=== PATIENT | male | born 1990 | race Caucasian/White ===

== ENCOUNTER 2017-01-05 12:43 | Emergency (ER) | payer OTHER ==
[~2017-01-05] VITALS: Ht 185.4 cm; Wt 72.6 kg
[2017-01-05] MEDS ORDERED: PROZAC20 MG PO (12:50)
[2017-01-05] MEDS ORDERED: BUSPIRONE HCL15 MG PO (12:50)
[2017-01-05] MEDS ORDERED: IBUPROFEN 600600 M1 PO (14:45)
[2017-01-05] MEDS ORDERED: NORCO 5-325 TA1 EACH PO (14:45)
[2017-01-05 15:01] VITALS: BP 120/68
== END 2017-01-05 15:01 | disposition home or self-care (01) ==
LOC: ER 12:43
DX: S05.12XA Contusion of eyeball and orbital tissues, left eye, initial encounter (principal); S05.11XA Contusion of eyeball and orbital tissues, right eye, initial encounter; F32.9 Major depressive disorder, single episode, unspecified; Y00.XXXA Assault by blunt object, initial encounter; Y93.89 Activity, other specified; Y92.89 Other specified places as the place of occurrence of the external cause; Y99.8 Other external cause status

== ENCOUNTER 2017-02-04 21:41 | Emergency (ER) | payer OTHER ==
[~2017-02-04] VITALS: Ht 185.4 cm; Wt 74.8 kg
[~2017-02-04 21:41] MED LIST: BUSPIRONE HCL15 MG PO; IBUPROFEN 600600 M1 PO; NORCO 5-325 TA1 EACH PO; PROZAC20 MG PO
[2017-02-04 22:12] LABS: BASOPHILS 1.2 % (0.0-2.0); HEMATOCRIT 44.2 % (42.0-52.0); HEMOGLOBIN 15.1 gm/dL (14.0-18.0); LYMPHOCYTES 34.8 % (24.0-44.0); MCH 30.3 pg (26.0-34.0); MCHC 34.2 g/dL (28.0-37.0); MCV 88.6 fL (80.0-100.0); MONOCYTES 6.9 % (1.0-8.0); PLATELET COUNT 193 thou/uL (150-400); POLYS 51.1 % (36.0-66.0); RBC 4.99 mil/uL (4.50-6.00); WBC 5.8 thou/uL (4.0-11.0)
[2017-02-04 22:15] LABS: CALCIUM 8.6 mg/dL (8.5-10.1); CREATININE 0.8 mg/dL (0.7-1.3); POTASSIUM 3.9 mmol/L (3.5-5.1)
[2017-02-04 22:19] LABS: MANUAL DIFF NO
[2017-02-04 22:22] LABS: AMP/METHAMP Negative (Negative); BARBITURATES Negative (Negative); BENZODIAZEPINES POSITIVE (Negative); COCAINE Negative (Negative); METHADONE Negative (Negative); OPIATES POSITIVE (Negative); PCP Negative (Negative); THC POSITIVE (Negative)
[2017-02-04 23:05] VITALS: BP 119/69
== END 2017-02-04 23:12 | disposition home or self-care (01) ==
LOC: ER 21:41
PROVIDERS: Emergency Medicine
DX: F10.10 Alcohol abuse, uncomplicated (principal); F19.10 Other psychoactive substance abuse, uncomplicated; F32.9 Major depressive disorder, single episode, unspecified

== ENCOUNTER 2019-10-17 12:17 | Emergency (ER) | payer OTHER ==
[~2019-10-17] VITALS: Ht 185.4 cm; Wt 81.7 kg
[2019-10-17 12:18] VITALS: BP 123/83
[2019-10-17] MEDS ORDERED: TRAMADOL 50 MG50 MG PO (12:56)
== END 2019-10-17 13:16 | disposition home or self-care (01) ==
LOC: ER 12:17
DX: S62.336A Displaced fracture of neck of fifth metacarpal bone, right hand, initial encounter for closed fracture (principal); F32.9 Major depressive disorder, single episode, unspecified; F17.210 Nicotine dependence, cigarettes, uncomplicated; W22.01XA Walked into wall, initial encounter; Y93.89 Activity, other specified; Y92.89 Other specified places as the place of occurrence of the external cause; Y99.0 Civilian activity done for income or pay

== ENCOUNTER 2020-10-15 13:45 | Emergency (ER) | payer OTHER ==
[~2020-10-15] VITALS: Ht 185.4 cm; Wt 81.7 kg
[~2020-10-15 13:45] MED LIST changes: +TRAMADOL 50 MG50 MG PO
[2020-10-15] MEDS ORDERED: NEOMYC-POLYM-DEX5 ML OPHTHALMIC (16:35)
[2020-10-15] MEDS ORDERED: HYDROCODON-ACE1 EAC7 PO (16:35)
[2020-10-15 16:49] VITALS: BP 136/72
== END 2020-10-15 16:50 | disposition home or self-care (01) ==
LOC: ER 13:45
DX: S02.2XXA Fracture of nasal bones, initial encounter for closed fracture (principal); S01.411A Laceration without foreign body of right cheek and temporomandibular area, initial encounter; S05.01XA Injury of conjunctiva and corneal abrasion without foreign body, right eye, initial encounter; F17.210 Nicotine dependence, cigarettes, uncomplicated; Z79.899 Other long term (current) drug therapy; Y04.0XXA Assault by unarmed brawl or fight, initial encounter; Y93.89 Activity, other specified; Y92.89 Other specified places as the place of occurrence of the external cause; Y99.9 Unspecified external cause status

== ENCOUNTER 2020-12-07 08:50 | Emergency (ER) | payer OTHER ==
[~2020-12-07] VITALS: Ht 188 cm; Wt 81.7 kg
[~2020-12-07 08:50] MED LIST changes: +HYDROCODON-ACE1 EAC7 PO; +NEOMYC-POLYM-DEX5 ML OPHTHALMIC
[2020-12-07 08:58] VITALS: BP 119/74
== END 2020-12-07 09:38 | disposition home or self-care (01) ==
LOC: ER 08:50
DX: R51.9 Headache, unspecified (principal); F12.90 Cannabis use, unspecified, uncomplicated; F17.210 Nicotine dependence, cigarettes, uncomplicated; Z79.899 Other long term (current) drug therapy

== ENCOUNTER 2021-03-13 13:58 | Emergency (ER) | payer OTHER ==
[~2021-03-13] VITALS: Ht 188 cm; Wt 79.4 kg
[2021-03-13 14:43] LABS: ABSOLUTE NEUTROPHILS 5.3 thou/uL (1.4-8.2); BASOPHILS 0.5 % (0.0-2.0); EOSINOPHILS 0.1 % (0.0-3.0); HEMATOCRIT 50.8 % (42.0-52.0); HEMOGLOBIN 17.2 gm/dL (14.0-18.0); LYMPHOCYTES 19.9 % (24.0-44.0); MCHC 33.8 g/dL (28.0-37.0); MCV 88.8 fL (80.0-100.0); MONOCYTES 8.1 % (1.0-8.0); PLATELET COUNT 150 thou/uL (150-400); POLYS 71.4 % (36.0-66.0); RBC 5.72 mil/uL (4.50-6.00); RDW 13.8 % (10.5-14.5); WBC 7.4 thou/uL (4.0-11.0)
[2021-03-13 14:50] LABS: CALCIUM 9.2 mg/dL (8.5-10.1); CREATININE 1.1 mg/dL (0.7-1.3); POTASSIUM 3.5 mmol/L (3.5-5.1)
[2021-03-13 14:57] LABS: DIRECT BILIRUBIN 0.2 mg/dL (<0.1-0.2); TOTAL BILIRUBIN 1.1 mg/dL (0.2-1.0); TOTAL PROTEIN 7.8 g/dL (6.4-8.2)
[2021-03-13 16:22] LABS: URINE BILIRUBIN NEGATIVE (Negative); URINE BLOOD NEGATIVE (Negative); URINE CLARITY CLEAR; URINE COLOR YELLOW; URINE GLUCOSE-RANDOM* NEGATIVE (Negative); URINE KETONES NEGATIVE (Negative); URINE LEUKOCYTES-REFLEX NEGATIVE (Negative); URINE NITRITE-REFLEX NEGATIVE (Negative); URINE PROTEIN (DIPSTICK) NEGATIVE (Negative); URINE SPECIFIC GRAVITY <= 1.005 (1.005-1.035); URINE UROBILINOGEN 0.2 E.U./dl (0.2-1.0)
[2021-03-13 17:08] VITALS: BP 148/88
[2021-03-13] MEDS ORDERED: ONDANSETRON HCL4 M2 PO (17:10)
== END 2021-03-13 17:08 | disposition home or self-care (01) ==
LOC: ER 13:58
PROVIDERS: Nurse Practitioner
DX: R11.2 Nausea with vomiting, unspecified (principal); R42 Dizziness and giddiness; R10.84 Generalized abdominal pain; F17.210 Nicotine dependence, cigarettes, uncomplicated